=== PATIENT | female | born 1990 | race Caucasian/White ===

== ENCOUNTER → 2021-12-10 14:56 | Outpatient (CLI) | payer OTHER, SELFPAY ==
--- NOTE | ~2021-12-10 | US_ITS ---
EXAMINATION: US OB <= 14 weeks fetus DATE: 12/10/2021 15:19 INDICATION: Status post dating and viability of during first trimester TECHNIQUE: Real-time pelvic ultrasound utilizing both a transvaginal and transabdominal probe was pe rformed. The interpreting radiologist was not present for the study. COMPARISON: None. FINDINGS: The uterus measures 10.1 x 7.4 x 8.9 cm. There is an intrauterine gestational sac. A yolk sac and fe christina pole are identified. The crown rump length measures 5.6 cm, which correlates with an estimated ge stational age of 12 weeks and 1 days. heart motion is identified measuring 152 beats per minute (bpm) by M-mode Doppler. 1.7 x 0.9 x 1.4 cm anechoic subchorionic hematoma along the left side of th e gestational sac. The bilateral ovaries are not visualized. There is no free fluid in the pelvis. IMPRESSION: 1. Single living fetus with heart rate of 152 bpm. 2. Gestational age by ultrasound of 12 weeks 1 day(s) +/- 1 week and 1 day(s) with ultrasound estimat ed date of delivery (JUAN) of 06/23/2022. 3. Small subchorionic hematoma. Reviewed, dictated and finalized at location A. IMPRESSION: 1. Single living fetus with heart rate of 152 bpm. 2. Gestational age by ultrasound of 12 weeks 1 day(s) +/- 1 week and 1 day(s) w ith ultrasound estimated date of delivery (JUAN) of 06/23/2022. 3. Small subchorionic hematoma.
== END ==
PROVIDERS: PCP Internal Medicine; Visit Provider Advanced Practice Midwife
DX: Z36.87 Encounter for antenatal screening for uncertain dates (principal); Z3A.12 12 weeks gestation of pregnancy
CPT/HCPCS: 76801

== ENCOUNTER → 2022-01-09 08:52 | Outpatient (CLI) | payer OTHER, SELFPAY ==
--- NOTE | ~2022-01-09 | US_ITS ---
EXAMINATION: US OB follow up DATE: 01/09/2022 09:19 INDICATION: Subchorionic hematoma follow-up, second trimester TECHNIQUE: Real-time ultrasound of the pelvis was performed. The interpreting radiologist was not pre sent for the study. COMPARISON: 12/10/2021 FINDINGS: There is a single living fetus in variable presentation. The placenta is anterior and 4.9 c m from the internal cervical os. There is a 2.6 x 2.1 x 1.0 cm hypoechoic area adjacent to the placen ta. The cervical length is 4.9 cm. cardiac activity and movement are noted. heart r ate is 151 beats per minute (bpm). The amniotic fluid index is subjectively normal. The following biometric data were obtained: Biparietal diameter (BPD): 3.2 cm; head circumference (HC): 12.7 cm; abdominal circumference (AC): 10 .7 cm; femur length (FL): 2.1 cm. These measurements are concordant. Estimated weight is 154 g +/- 23 g, which correlates with the 40th percentile when 06/23/2022 is used as estimated date of delivery. As single measurements, these parameters are each equal to the following estimated gestational ages w ith ranges of +/- 2 standard deviations: BPD: 16 weeks 1 days +/- 1 weeks 1 days. HC: 16 weeks 3 days +/- 1 weeks 1 days. AC: 16 weeks 4 days +/- 1 weeks 5 days. FL: 16 weeks 1 days +/- 1 weeks 3 days. estimated gestational age based solely on measurements from this exam is 16 weeks 2 days +/- 1 weeks 1 days. IMPRESSION: 1. Single living fetus in variable presentation. 2. Estimated weight is 154 g +/- 23 g, which correlates with the 40th percentile when 06/23/2022 is used as estimated date of delivery. 3. Persistent hypoechoic area adjacent to the placenta, likely small hemorrhage. Reviewed, dictated and finalized at location A. IMPRESSION: 1. Single living fetus in variable presentation. 2. Estimated weight is 154 g +/- 23 g, which correlates with the 40th per centile when 06/23/2022 is used as estimated date of delivery. 3. Persistent hypoechoic area adjacent to the placenta, likely small hemorrhage .
== END ==
PROVIDERS: PCP Obstetrics & Gynecology Gynecology; Visit Provider Obstetrics & Gynecology Gynecology
DX: O46.92 Antepartum hemorrhage, unspecified, second trimester (principal); Z3A.16 16 weeks gestation of pregnancy
CPT/HCPCS: 76816

== ENCOUNTER → 2022-01-28 10:59 | Outpatient (CLI) | payer OTHER, SELFPAY ==
--- NOTE | ~2022-01-28 | US_ITS ---
EXAMINATION: US OB /maternal detail DATE: 01/28/2022 11:39 INDICATION: anatomic survey. TECHNIQUE: Real-time ultrasound of the pelvis was performed. COMPARISON: Ultrasound 01/09/2022, 12/10/2021 FINDINGS: There is a single living fetus in transverse lie. The placenta is anterior, 7.4 cm from the cervix. There is a 1.4 x 1.2 x 0.9 cm hypoechoic hematoma at the margin of the placenta. The cervical length is normal on transabdominal images. heart rate is 149 beats per minute (bpm). The amniotic flui d volume is subjectively normal. The following biometric data were obtained: Biparietal diameter (BPD): 4.4 cm; head circumference (HC): 16.0 cm; abdominal circumference (AC): 13 .8 cm; femur length (FL): 2.9 cm. These measurements are concordant. Estimated weight is 271 g +/- 41 g, which correlates with the 40th percentile when 06/23/22 is us ed as estimated date of delivery. As single measurements, these parameters are each equal to the following estimated gestational ages: BPD: 19 weeks 2 days. HC: 18 weeks 6 days. AC: 19 weeks 2 days. FL: 18 weeks 6 days. estimated gestational age based solely on measurements from this exam is 19 weeks 1 days +/- 1 weeks 2 days. The cerebral ventricles, cerebellum, cisterna magna, nuchal fold, lip, and visualized portions of the spine are normal. The heart is normal. The diaphragm, stomach, kidneys, and bladder are normal. Ther e are two umbilical arteries to yield a 3-vessel cord. The cord insertion is normal. IMPRESSION: 1. Single living fetus in transverse lie. 2. Estimated weight is 271 g +/- 41 g, which correlates with the 40th percentile when 06/23/22 i s used as estimated date of delivery. 3. Normal anatomic survey. 4. Small hematoma at the margin of the placenta. Reviewed, dictated and finalized at location A. IMPRESSION: 1. Single living fetus in transverse lie. 2. Estimated weight is 271 g +/- 41 g, which correlates with the 40th pe rcentile when 06/23/22 is used as estimated date of delivery. 3. Normal anatomic survey. 4. Small hematoma at the margin of the placenta.
== END ==
PROVIDERS: PCP Advanced Practice Midwife; Visit Provider Advanced Practice Midwife
DX: Z36.9 Encounter for antenatal screening, unspecified (principal); Z3A.19 19 weeks gestation of pregnancy
CPT/HCPCS: 76805

== ENCOUNTER → 2022-02-25 08:53 | Outpatient (CLI) | payer OTHER, SELFPAY ==
--- NOTE | ~2022-02-25 | US_ITS ---
EXAMINATION: US OB follow up DATE: 02/25/2022 09:18 INDICATION: Subchorionic hematoma follow-up during second trimester TECHNIQUE: Real-time ultrasound of the pelvis was performed. The interpreting radiologist was not pre sent for the study. COMPARISON: 01/28/2022 FINDINGS: There is a single living fetus in vertex presentation. The placenta is anterior. card iac activity and movement are noted. heart rate is 131 beats per minute (bpm). The amniot ic fluid index is subjectively normal. A 1.7 x 1.3 x 1.5 cm hypoechoic area is seen in the margin of the placenta and not significantly changed. The following biometric data were obtained: Biparietal diameter (BPD): 5.7 cm; head circumference (HC): 20.5 cm; abdominal circumference (AC): 19 .2 cm; femur length (FL): 4.1 cm. These measurements are concordant. Estimated weight is 602 g +/- 90 g, which correlates with the 61st percentile when 06/23/2022 is used as estimated date of delivery. As single measurements, these parameters are each equal to the following estimated gestational ages w ith ranges of +/- 2 standard deviations: BPD: 23 weeks 2 days +/- 1 weeks 5 days. HC: 22 weeks 4 days +/- 1 weeks 3 days. AC: 24 weeks 0 days +/- 2 weeks 0 days. FL: 23 weeks 2 days +/- 1 weeks 6 days. estimated gestational age based solely on measurements from this exam is 23 weeks 2 days +/- 1 weeks 4 days. IMPRESSION: 1. Single living fetus in vertex presentation. 2. Small hematoma at the margin of the placenta without significant change. Reviewed, dictated and finalized at location B. ER FIXER
== END ==
PROVIDERS: PCP Obstetrics & Gynecology Gynecology; Visit Provider Obstetrics & Gynecology Gynecology
DX: O36.8920 Maternal care for other specified fetal problems, second trimester, not applicable or unspecified (principal); Z3A.23 23 weeks gestation of pregnancy
CPT/HCPCS: 76816

== ENCOUNTER → 2022-03-24 11:35 | Outpatient (CLI) | payer OTHER, SELFPAY ==
--- NOTE | ~2022-03-24 | US_ITS ---
EXAMINATION: US OB follow up DATE: 03/24/2022 12:02 INDICATION: Follow-up subchorionic hematoma. TECHNIQUE: Real-time transabdominal obstetric ultrasound. FINDINGS: Comparison to multiple prior studies sequentially, with oldest reviewed study dated 022. There is a single living fetus in breech presentation. The placenta is anterior without placenta pre via. cardiac activity and movement is noted with a heart rate of 134 beats per minute. T he amniotic fluid volume is normal. Amniotic fluid index is increased measuring 22.9 cm (normal range 9.5-22.6 cm). No evidence for subchorionic hematoma. The following biometric data were obtained: BPD: 68mm corresponds to gestational age 27 weeks 3 days. Head circumference: 253mm corresponds to gestational age 27 weeks 3 days. Abdominal circumference: 226mm corresponds to gestational age 27 weeks 0 days. Femur length: 50mm corresponds to gestational age 26 weeks 6 days. Estimated weight: 1015grams +/- 152grams, 38.3%.] IMPRESSION: 1. Single living intrauterine in breech presentation with an estimated gestational age of 26 weeks 9 days by inititial ultrasound. Appropriate interval growth. 2. Normal placenta. 3: Polyhydramnios. NICK measures 22.9 cm. Reviewed, dictated and finalized at location A. RY CAR DRIVER IMPRESSION: 1. Single living intrauterine in breech presentation with an estimat ed gestational age of 26 weeks 9 days by inititial ultrasound. Appropriate int erval growth. 2. Normal placenta. 3: Polyhydramnios. NICK measures 22.9 cm.
== END ==
PROVIDERS: PCP Obstetrics & Gynecology Gynecology; Visit Provider Obstetrics & Gynecology Gynecology
DX: O24.414 Gestational diabetes mellitus in pregnancy, insulin controlled (principal); Z79.4 Long term (current) use of insulin; O36.8930 Maternal care for other specified fetal problems, third trimester, not applicable or unspecified; O40.3XX0 Polyhydramnios, third trimester, not applicable or unspecified; Z3A.00 Weeks of gestation of pregnancy not specified
CPT/HCPCS: 76816

== ENCOUNTER 2022-04-01 13:34 | Outpatient (CLI) | payer OTHER, SELFPAY ==
[2022-04-01 14:22] VITALS: BP 141/67; PULSE 85
[2022-04-01 14:45] LABS: Basophils Percent Auto 0.2 % (0.2-1.2); Eosinophils Absolute Auto 0.1 K/mm3 (0-0.3); Eosinophils Percent Auto 0.9 % (0-4.4); Hematocrit 33.1 % (37.0-47.0); Hemoglobin 10.9 g/dL (12.0-15.0); Immature Granulocyte Absolute 0.05 K/mm3 (0.00-0.031); Immature Granulocyte Percent A 0.5 % (0-0.5); Lymphocytes Absolute Auto 2.87 K/mm3 (0.9-3.2); Lymphocytes Percent Auto 28.6 % (18.3-44.2); Mean Corpuscular HGB Conc 32.9 g/dl (32-36); Mean Corpuscular Hemoglobin 30.9 pg (26-34); Mean Corpuscular Volume 93.8 fl (80-100); Mean Platelet Volume 8.1 fl (7.4-10.4); Monocytes Absolute Auto 0.7 K/mm3 (0.1-0.6); Monocytes Percent Auto 7.3 % (2.6-8.5); Neutrophils Absolute Auto 6.3 K/mm3 (1.3-6.7); Neutrophils Percent Auto 62.5 % (45.5-73.1); Platelet Count Result 249 k/mm3 (150-375); Red Blood Count 3.53 M/mm3 (4.2-5.4); Red Cell Distribution Width 13.6 % (11.5-14.5)
[2022-04-01 14:46] VITALS: BP 144/57; PULSE 85
[2022-04-01 14:50] LABS: Bilirubin Urine Negative (Negative); Blood Urine Negative (Negative); Color Urine Light Yellow (Yellow); Glucose Urine UA Negative (Negative); Ketones Urine Negative (Negative); Leukocyte Esterase Ur Negative LEU/UL (NEGATIVE); Nitrate Urine Negative (Negative); Protein Urine Negative (Negative); Urobilinogen Urine 0.2 mg/dL (<2.0)
[2022-04-01 14:52] LABS: Appearance Urine Slightly Cloudy (Clear)
[2022-04-01 14:53] LABS: Add Urine Microscopic? YES
[2022-04-01 14:55] LABS: Creatinine Urine 59.7 mg/dL; Total Protein Urine Random 8 mg/dL; Ur Ttl Prot Creatinine Ratio 0.13 mg/mg (0-0.20)
[2022-04-01 14:57] LABS: Alanine Aminotransferase 14 U/L (6-35); Albumin Level 3.7 g/dL (3.5-5.1); Alkaline Phosphatase 81 U/L (38-126); Anion Gap 5 mmol/L (8-16); Aspartate Amino Transferase 15 U/L (14-36); Bilirubin,Total 0.5 mg/dL (0.2-1.3); Blood Urea Nitrogen 6 mg/dL (7-17); Calcium 8.5 mg/dL (8.4-10.2); Carbon Dioxide 24 mmol/L (22-30); Chloride 102 mmol/L (98-107); Estimated Glomerular Filt Rate > 60; Glucose 77 mg/dL (65-110); Potassium 3.6 mmol/L (3.4-5.0); Sodium 131 mmol/L (137-145); Uric Acid 3.1 mg/dL (2.5-7.5)
[2022-04-01 14:58] LABS: Bacteria Urine Trace /hpf; Mucus Urine Rare /lpf; RBC Urine 0-2 /hpf (0-2); Squamous Epithelial Cell Urine Moderate /hpf (Few); WBC Urine 0-3 /hpf (0-3)
[2022-04-01 15:02] VITALS: BP 146/54; PULSE 87
[2022-04-01 15:16] VITALS: BP 143/58; PULSE 79
--- NOTE | 2022-04-01 15:18 | PC.NURSE ---
Called Dr. Fritz with BPs and lab results. August D/C home with 24hr urine.
[2022-04-01 15:37] LABS: HIV 1/2 Ab P24 Ag Result Negative (Negative)
[2022-04-01 16:51] LABS: Vitamin D 25 Hydroxy 32.2 ng/mL
[2022-04-04 12:15] VITALS: BMI 25.8
[2022-04-04 13:56] LABS: Collection Time Urine 24 HOURS; Patient Weight 170 Lbs; Total Volume 24 Hour Urine 2300 ml
[2022-04-04 14:08] LABS: Creatinine Clearance Urine 251.7 ml/min (75-125); Creatinine Urine 86.6 mg/dL; Total Protein Urine 24 Hr 161 mg/24hr (28-141); Total Protein Urine Random 7 mg/dL
== END 2022-04-01 15:30 | disposition home or self-care (01) ==
LOC: ANHOBOP 13:43 → ANHOBPP 13:44
PROVIDERS: Visit Provider Obstetrics & Gynecology Gynecology
DX: O13.9 Gestational [pregnancy-induced] hypertension without significant proteinuria, unspecified trimester (principal)
CPT/HCPCS: 36415; 59025; 80053; 81001; 81050; 82306; 82570; 82575; 84156; 84550; 85025; 86703; 87086; 99199; G0432

== ENCOUNTER 2022-04-07 16:52 | Outpatient (CLI) | payer OTHER, SELFPAY ==
[2022-04-07] VITALS (10 sets, daily range): BP systolic 123–134; BP diastolic 59–72; PULSE 80–92; O2SAT 97–100
[2022-04-07 17:41] LABS: Basophils Percent Auto 0.2 % (0.2-1.2); Eosinophils Absolute Auto 0.1 K/mm3 (0-0.3); Eosinophils Percent Auto 1.2 % (0-4.4); Hematocrit 33.4 % (37.0-47.0); Hemoglobin 11.1 g/dL (12.0-15.0); Immature Granulocyte Absolute 0.03 K/mm3 (0.00-0.031); Immature Granulocyte Percent A 0.3 % (0-0.5); Lymphocytes Absolute Auto 2.59 K/mm3 (0.9-3.2); Lymphocytes Percent Auto 28.5 % (18.3-44.2); Mean Corpuscular HGB Conc 33.2 g/dl (32-36); Mean Corpuscular Hemoglobin 31.1 pg (26-34); Mean Corpuscular Volume 93.6 fl (80-100); Mean Platelet Volume 7.8 fl (7.4-10.4); Monocytes Absolute Auto 0.5 K/mm3 (0.1-0.6); Monocytes Percent Auto 5.2 % (2.6-8.5); Neutrophils Absolute Auto 5.9 K/mm3 (1.3-6.7); Neutrophils Percent Auto 64.6 % (45.5-73.1); Platelet Count Result 233 k/mm3 (150-375); Red Blood Count 3.57 M/mm3 (4.2-5.4); Red Cell Distribution Width 13.6 % (11.5-14.5); White Blood Count 9.1 K/mm3 (4.5-10.0)
[2022-04-07 17:54] LABS: Alanine Aminotransferase 20 U/L (6-35); Albumin Level 3.7 g/dL (3.5-5.1); Alkaline Phosphatase 98 U/L (38-126); Anion Gap 5 mmol/L (8-16); Aspartate Amino Transferase 19 U/L (14-36); Bilirubin,Total 0.4 mg/dL (0.2-1.3); Blood Urea Nitrogen 9 mg/dL (7-17); Calcium 8.3 mg/dL (8.4-10.2); Carbon Dioxide 24 mmol/L (22-30); Chloride 102 mmol/L (98-107); Estimated Glomerular Filt Rate > 60; Glucose 108 mg/dL (65-110); Potassium 3.3 mmol/L (3.4-5.0); Sodium 131 mmol/L (137-145); Uric Acid 3.2 mg/dL (2.5-7.5)
[2022-04-07 18:04] LABS: Creatinine Urine 126.4 mg/dL
[2022-04-07 18:20] LABS: Total Protein Urine Random < 5 mg/dL; Ur Ttl Prot Creatinine Ratio < 0.04 mg/mg (0-0.20)
[2022-04-07 18:26] LABS: Add Urine Microscopic? YES; Appearance Urine Clear (Clear); Bilirubin Urine Negative (Negative); Blood Urine Negative (Negative); Color Urine Light Yellow (Yellow); Glucose Urine UA Negative (Negative); Ketones Urine 1+ mg/dL (Negative); Leukocyte Esterase Ur Negative LEU/UL (NEGATIVE); Nitrate Urine Negative (Negative); Protein Urine Negative (Negative); Urobilinogen Urine 0.2 mg/dL (<2.0); pH Urine 6.5 (5.0-9.0)
[2022-04-07 18:37] LABS: Bacteria Urine Trace /hpf; Mucus Urine Rare /lpf; RBC Urine 0-2 /hpf (0-2); Squamous Epithelial Cell Urine Few /hpf (Few); WBC Urine 0-3 /hpf (0-3)
--- NOTE | 2022-04-07 18:48 | PC.NURSE ---
Updated Rivka Britt CNM on pt elevated blood pressure upon arrival, blood pressure on unit, labs, and reactive tracing. Orders received to hydrate PO and D/C with instructions on when to return to labor and delivery.
--- NOTE | 2022-04-09 07:38 | PM.OBTRLD ---
OB - Triage/Final Diagnosis Visit Information Reason for evaluation: other (Elevated BP at home. ) Comments/Additional reasons for admission: I have assessed the risk for this patient, Dotty Ro Maggie, and determined that she would benefit from observation care. Evaluation Laboratory results: Laboratory Tests 04/07/22 04/07/22 04/07/22 17:32 17:32 17:32 WBC 9.1 RBC 3.57 L Hgb 11.1 L Hct 33.4 L MCV 93.6 MCH 31.1 MCHC 33.2 RDW 13.6 Plt Count 233 MPV 7.8 Immature Gran % (Auto) 0.3 Neut % (Auto) 64.6 Lymph % (Auto) 28.5 [place] % (Auto) 5.2 Eos % (Auto) 1.2 Baso % (Auto) 0.2 Lymph # (Auto) 2.59 [place] # (Auto) 0.5 Eos # (Auto) 0.1 Baso # (Auto) 0.0 Abs Immat Gran (auto) 0.03 Absolute Neuts (auto) 5.9 Absolute Nucleated RBC 0.0 Nucleated RBC % 0.0 Sodium Potassium Chloride Carbon Dioxide Anion Gap BUN Creatinine Estim Creat Clear Calc Estimated GFR Glucose Uric Acid Calcium Total Bilirubin AST ALT Alkaline Phosphatase Total Protein Albumin Urine Color Light yellow Urine Appearance Clear Urine pH 6.5 Ur Specific [place] 1.020 Urine Protein Negative Urine Glucose (UA) Negative Urine Ketones 1+ H Ur Blood (Man) Negative Urine Nitrate Negative Urine Bilirubin Negative Urine Urobilinogen 0.2 Ur Leukocyte Esterase Negative Urine RBC 0-2 Urine WBC 0-3 Ur Squamous Epith Cells Few Urine Bacteria Trace Urine Mucus Rare U Random Total Protein < 5 Urine Creatinine 126.4 Protein/Creat Ratio 2 < 0.04 04/07/22 17:32 WBC RBC Hgb Hct MCV MCH MCHC RDW Plt Count MPV Immature Gran % (Auto) Neut % (Auto) Lymph % (Auto) [place] % (Auto) Eos % (Auto) Baso % (Auto) Lymph # (Auto) [place] # (Auto) Eos # (Auto) Baso # (Auto) Abs Immat Gran (auto) Absolute Neuts (auto) Absolute Nucleated RBC Nucleated RBC % Sodium 131 L Potassium 3.3 L Chloride 102 Carbon Dioxide 24 Anion Gap 5 L BUN 9 Creatinine 0.60 L Estim Creat Clear Calc Not Reportable Estimated GFR > 60 Glucose 108 Uric Acid 3.2 Calcium 8.3 L Total Bilirubin 0.4 AST 19 ALT 20 Alkaline Phosphatase 98 Total Protein 7.0 Albumin 3.7 Urine Color Urine Appearance Urine pH Ur Specific [place] Urine Protein Urine Glucose (UA) Urine Ketones Ur Blood (Man) Urine Nitrate Urine Bilirubin Urine Urobilinogen Ur Leukocyte Esterase Urine RBC Urine WBC Ur Squamous Epith Cells Urine Bacteria Urine Mucus U Random Total Protein Urine Creatinine Protein/Creat Ratio 2
== END 2022-04-07 18:59 | disposition home or self-care (01) ==
LOC: ANHOBOP 17:00 → ANHOBPP 17:01
PROVIDERS: Visit Provider Obstetrics & Gynecology Gynecology
DX: O13.9 Gestational [pregnancy-induced] hypertension without significant proteinuria, unspecified trimester (principal); Z3A.00 Weeks of gestation of pregnancy not specified
CPT/HCPCS: 36415; 59025; 80053; 81001; 82570; 84156; 84550; 85025; 87086; 99199

== ENCOUNTER 2022-04-26 13:59 | Observation (INO) | payer OTHER, SELFPAY ==
[2022-04-26] VITALS (15 sets, daily range): BP systolic 128–138; BP diastolic 64–67; PULSE 85–105; O2SAT 97–100
--- NOTE | 2022-04-26 14:17 | OBADM ---
This patient, Dotty Serrano, admitted to the OB room OB Post 116 for observation. Patient/family oriented to hospital policies and general routines including ID bracelet, bed and alarms, visiting hours, pain management, procedures, bathroom and other care routines, personal items, smoking policy, room service/diet, and visiting hours. Patient/Family are encouraged to report perceived risks to care and to ask questions if they do not understand what they are told or what they should do.
[2022-04-26 14:33] LABS: Add Urine Microscopic? NO; Appearance Urine Clear (Clear); Bilirubin Urine Negative (Negative); Blood Urine Negative (Negative); Color Urine Yellow (Yellow); Glucose Urine UA Negative (Negative); Ketones Urine Negative (Negative); Leukocyte Esterase Ur Negative LEU/UL (Negative); Nitrate Urine Negative (Negative); Protein Urine Negative (Negative); Specific Grav Ur <= 1.005 (1.001-1.035); Urobilinogen Urine 0.2 mg/dL (<2.0)
--- NOTE | 2022-04-26 14:44 | PC.NURSE ---
1437- Spoke with Dr. Candelaria, orders to do SVE. If closed, watch patient for one more hour and PO hydrate. If patient feeling decrease in contractions may be discharged to home with precautions.
--- NOTE | 2022-04-26 15:29 | PC.NURSE ---
1528- Called Dr. Candelaria, patient marking contractions every minute, 30-40 seconds long. Abdomen palpates soft, orders to give 1 dose of terbutaline 0.25 subQ.
[2022-04-26] MEDS: TERBUTALINE SULFATE 1 MG/ML VIAL 0.25 MG SUB-Q (15:35)
--- NOTE | 2022-04-26 16:51 | PC.NURSE ---
1640- Spoke with Dr. Candelaria, orders for discharge to home with precautions.
--- NOTE | 2022-04-28 13:48 | PM.OBTRLD ---
OB - Triage/Final Diagnosis Visit Information Date of evaluation: 04/26/22 Reason for evaluation: threatened labor Comments/Additional reasons for admission: I have assessed the risk for this patient, Dotty Ro Maggie, and determined that she would benefit from observation care. Evaluation Laboratory results: Laboratory Tests 04/26/22 14:12 Urine Color Yellow Urine Appearance Clear Urine pH 7.0 Ur Specific [place] <= 1.005 Urine Protein Negative Urine Glucose (UA) Negative Urine Ketones Negative Ur Blood (Man) Negative Urine Nitrate Negative Urine Bilirubin Negative Urine Urobilinogen 0.2 Leukocyte Esterase Rfl Negative
== END 2022-04-26 16:50 | disposition home or self-care (01) ==
PROVIDERS: Admitting Provider Student in an Organized Health Care Education/Training Program; Visit Provider Student in an Organized Health Care Education/Training Program
DX: O47.03 False labor before 37 completed weeks of gestation, third trimester (principal); Z3A.31 31 weeks gestation of pregnancy
CPT/HCPCS: 81003; 96372; G0378; G0379; J3105

== ENCOUNTER 2022-04-30 09:35 | Outpatient (CLI) | payer OTHER, SELFPAY ==
--- NOTE | ~2022-04-30 | US_ITS ---
EXAMINATION: US OB follow up DATE: 04/30/2022 15:54 INDICATION: Size greater than dates. TECHNIQUE: Real-time ultrasound of the pelvis was performed. COMPARISON: Ultrasound 03/24/2022, 12/10/2021 FINDINGS: There is a single living fetus in transverse lie with head on the mother's right. The placenta is an terior. heart rate is 151 beats per minute (bpm). The cervical length is 3.8 cm on transabdomin al images, which is normal. The amniotic fluid index is 16.4 cm, which is normal. The following biometric data were obtained: Biparietal diameter (BPD): 8.5 cm; head circumference (HC): 30.3 cm; abdominal circumference (AC): 29 .5 cm; femur length (FL): 6.1 cm. These measurements are concordant. Estimated weight is 2111 g +/- 317 g, which correlates with the 65th percentile when 06/23/22 is used as estimated date of delivery. As single measurements, these parameters are each equal to the following estimated gestational ages: BPD: 34 weeks 2 days. HC: 33 weeks 5 days. AC: 33 weeks 3 days. FL: 31 weeks 5 days. estimated gestational age based solely on measurements from this exam is 33 weeks 2 days +/- 2 weeks 2 days. IMPRESSION: 1. Single living fetus in transverse lie. 2. Estimated weight is 2111 g +/- 317 g, which correlates with the 65th percentile when 06/23/22 is used as estimated date of delivery. Reviewed, dictated and finalized at location A. LINER
== END 2022-04-30 09:36 | disposition home or self-care (01) ==
LOC: ANHIMG 09:36
PROVIDERS: Visit Provider Obstetrics & Gynecology Gynecology
DX: O36.63X0 Maternal care for excessive fetal growth, third trimester, not applicable or unspecified (principal); Z3A.33 33 weeks gestation of pregnancy
CPT/HCPCS: 76816

== ENCOUNTER 2022-05-18 11:55 | Outpatient (CLI) | payer OTHER, SELFPAY ==
[2022-05-18] VITALS (14 sets, daily range): BP systolic 113–145; BP diastolic 56–85; PULSE 89–105
[2022-05-18 12:50] LABS: Basophils Percent Auto 0.2 % (0.2-1.2); Eosinophils Absolute Auto 0.1 K/mm3 (0-0.3); Eosinophils Percent Auto 0.7 % (0-4.4); Hematocrit 32.9 % (37.0-47.0); Hemoglobin 10.7 g/dL (12.0-15.0); Immature Granulocyte Absolute 0.04 K/mm3 (0.00-0.031); Immature Granulocyte Percent A 0.4 % (0-0.5); Lymphocytes Absolute Auto 2.31 K/mm3 (0.9-3.2); Mean Corpuscular HGB Conc 32.5 g/dl (32-36); Mean Corpuscular Hemoglobin 29.7 pg (26-34); Mean Corpuscular Volume 91.4 fl (80-100); Mean Platelet Volume 8.1 fl (7.4-10.4); Monocytes Absolute Auto 0.9 K/mm3 (0.1-0.6); Monocytes Percent Auto 8.2 % (2.6-8.5); Neutrophils Absolute Auto 7.2 K/mm3 (1.3-6.7); Neutrophils Percent Auto 68.5 % (45.5-73.1); Platelet Count Result 266 k/mm3 (150-375); Red Cell Distribution Width 13.7 % (11.5-14.5); White Blood Count 10.5 K/mm3 (4.5-10.0)
[2022-05-18 12:51] LABS: Appearance Urine Slightly Cloudy (Clear); Bilirubin Urine 1+ (Negative); Blood Urine Negative (Negative); Color Urine Yellow (Yellow); Glucose Urine UA Negative (Negative); Ketones Urine Trace mg/dL (Negative); Leukocyte Esterase Ur Trace LEU/UL (NEGATIVE); Nitrate Urine Negative (Negative); Protein Urine 1+ mg/dL (Negative); Urobilinogen Urine 0.2 mg/dL (<2.0)
[2022-05-18] MEDS: PSEUDOEPHEDRINE HCL 30 MG TABLET PO (12:52)
[2022-05-18 12:59] LABS: Bacteria Urine 3+ /hpf; Mucus Urine Rare /lpf; Squamous Epithelial Cell Urine Many /hpf (Few)
[2022-05-18 13:03] LABS: Creatinine Urine 157.4 mg/dL
--- NOTE | 2022-05-18 13:07 | PC.NURSE ---
Patient arrived on the unit at 1155 with complaints of a headache since 0900 and now has floaters in her vision. Patient has GDM and GHTN this . She is currently awaiting results of a 24 hour urine test. Patient is rating her headache a 5/10 and took 650mg of Tylenol at home at 1000. Obtained VS and an NST and called Dr. Hu with the results. Verbal orders received for PIH labs as well as 30 mg Sudafed PO.
[2022-05-18 13:10] LABS: Add Urine Microscopic? YES
[2022-05-18 13:12] LABS: Alanine Aminotransferase 19 U/L (6-35); Albumin Level 3.6 g/dL (3.5-5.1); Alkaline Phosphatase 99 U/L (38-126); Anion Gap 3 mmol/L (8-16); Aspartate Amino Transferase 17 U/L (14-36); Bilirubin,Total 0.8 mg/dL (0.2-1.3); Blood Urea Nitrogen 9 mg/dL (7-17); Calcium 8.8 mg/dL (8.4-10.2); Carbon Dioxide 25 mmol/L (22-30); Chloride 101 mmol/L (98-107); Estimated Glomerular Filt Rate > 60; Glucose 77 mg/dL (65-110); Potassium 3.8 mmol/L (3.4-5.0); Sodium 129 mmol/L (137-145); Uric Acid 3.6 mg/dL (2.5-7.5)
[2022-05-18 13:29] LABS: Total Protein Urine Random < 5 mg/dL; Ur Ttl Prot Creatinine Ratio < 0.03 mg/mg (0-0.20)
--- NOTE | 2022-05-18 13:41 | PC.NURSE ---
Spoke with Dr. Hu ([id number]) and updated her on patient status as well as lab values. Patient has complaints of nausea and blurred vision in her right eye. Orders placed for Fiorinal x1, Zofran ODT x1, reevaluate in one hour.
[2022-05-18] MEDS: ONDANSETRON HCL ODT 4 MG TABLET PO (13:58)
== END 2022-05-18 14:55 | disposition home or self-care (01) ==
LOC: ANHOBOP 11:59 → ANHOBPP 05-23 06:25
PROVIDERS: Obstetrics & Gynecology; PCP Advanced Practice Midwife; Visit Provider Advanced Practice Midwife
DX: O13.9 Gestational [pregnancy-induced] hypertension without significant proteinuria, unspecified trimester (principal); Z3A.00 Weeks of gestation of pregnancy not specified
CPT/HCPCS: 36415; 59025; 80053; 81001; 82570; 84156; 84550; 85025; 87086; 87088; 99199; A9270

== ENCOUNTER 2022-05-26 08:52 | Outpatient (CLI) | payer OTHER, SELFPAY ==
--- NOTE | ~2022-05-26 | US_ITS ---
EXAMINATION: US OB follow up DATE: 05/26/2022 09:54 INDICATION: Gestational diabetes during third trimester TECHNIQUE: Real-time ultrasound of the pelvis was performed. The interpreting radiologist was not pre sent for the study. COMPARISON: 04/30/2022 FINDINGS: There is a single living fetus in vertex presentation. The placenta is anterior. The cervic al length is 4.2 cm. cardiac activity and movement are noted. heart rate is 17.9 cm beats per minute (bpm). The amniotic fluid index is 17.9 cm which is normal (normal range: 7.7 cm to 24.9 cm). The following biometric data were obtained: Biparietal diameter (BPD): 9.3 cm; head circumference (HC): 33.1 cm; abdominal circumference (AC): 34 .6 cm; femur length (FL): 6.9 cm. These measurements are concordant. Estimated weight is 3288 g +/- 493 g, which correlates with the 91st percentile when 06/23/2022 i s used as estimated date of delivery. As single measurements, these parameters are each equal to the following estimated gestational ages w ith ranges of +/- 2 standard deviations: BPD: 37 weeks 6 days +/- 3 weeks 1 days. HC: 37 weeks 5 days +/- 2 weeks 5 days. AC: 38 weeks 4 days +/- 3 weeks 0 days. FL: 35 weeks 5 days +/- 3 weeks 0 days. estimated gestational age based solely on measurements from this exam is 37 weeks 3 days +/- 2 weeks 4 days. IMPRESSION: 1. Single living fetus in vertex presentation. 2. Normal amniotic fluid index. 3. Estimated weight is 3288 g +/- 493 g, which correlates with the 91st percentile when 3 is used as estimated date of delivery. Reviewed, dictated and finalized at location B. PACKER/PACKAGER IMPRESSION: 1. Single living fetus in vertex presentation. 2. Normal amniotic fluid index. 3. Estimated weight is 3288 g +/- 493 g, which correlates with the 91st p ercentile when 06/23/2022 is used as estimated date of delivery.
== END 2022-05-26 08:53 | disposition home or self-care (01) ==
PROVIDERS: PCP Advanced Practice Midwife; Visit Provider Obstetrics & Gynecology Gynecology
DX: O24.414 Gestational diabetes mellitus in pregnancy, insulin controlled (principal); Z79.4 Long term (current) use of insulin
CPT/HCPCS: 76816

== ENCOUNTER 2022-06-03 09:33 | Inpatient (IN) | payer OTHER, SELFPAY ==
[2022-06-03] VITALS (77 sets, daily range): BP systolic 84–149; BP diastolic 42–114; PULSE 81–124; TEMP 36.1–36.4; O2SAT 87–100; BMI 40.5
--- NOTE | 2022-06-03 09:33 | LDADM ---
This patient, Dotty Serrano, was admitted to Labor/Delivery/Recovery 104 on 06/03/22 at 09:33. Plans for labor, pain management and were discussed with patient. Patient/family oriented to hospital policies and general routines including ID bracelet, bed and alarms, visiting hours, pain management, procedures, bathroom and other care routines, personal items, smoking policy, room service/diet and guest tray routines, infant security routines, and visiting hours. Patient/Family are encouraged to report perceived risks to care and to ask questions if they do not understand what they are told or what they should do. See OBIX for further documentation.
[2022-06-03 10:21] LABS: Glucose Point of Care 91 mg/dl (65-105)
[2022-06-03 10:44] LABS: Basophils Percent Auto 0.2 % (0.2-1.2); Eosinophils Absolute Auto 0.1 K/mm3 (0-0.3); Eosinophils Percent Auto 0.6 % (0-4.4); Hematocrit 32.2 % (37.0-47.0); Hemoglobin 10.6 g/dL (12.0-15.0); Immature Granulocyte Absolute 0.04 K/mm3 (0.00-0.031); Immature Granulocyte Percent A 0.4 % (0-0.5); Lymphocytes Absolute Auto 1.89 K/mm3 (0.9-3.2); Lymphocytes Percent Auto 20.1 % (18.3-44.2); Mean Corpuscular HGB Conc 32.9 g/dl (32-36); Mean Corpuscular Hemoglobin 29.5 pg (26-34); Mean Corpuscular Volume 89.7 fl (80-100); Mean Platelet Volume 8.1 fl (7.4-10.4); Monocytes Absolute Auto 0.7 K/mm3 (0.1-0.6); Monocytes Percent Auto 7.7 % (2.6-8.5); Neutrophils Absolute Auto 6.7 K/mm3 (1.3-6.7); Platelet Count Result 273 k/mm3 (150-375); Red Blood Count 3.59 M/mm3 (4.2-5.4); White Blood Count 9.4 K/mm3 (4.5-10.0)
[2022-06-03] MEDS: miSOPROStol 25 MCG TABLET BY MOUTH ×2 (10:48→15:14)
[2022-06-03 10:57] LABS: Alanine Aminotransferase 18 U/L (6-35); Albumin Level 3.8 g/dL (3.5-5.1); Alkaline Phosphatase 114 U/L (38-126); Anion Gap 2 mmol/L (8-16); Aspartate Amino Transferase 23 U/L (14-36); Bilirubin,Total 0.7 mg/dL (0.2-1.3); Blood Urea Nitrogen 8 mg/dL (7-17); Calcium 8.5 mg/dL (8.4-10.2); Carbon Dioxide 23 mmol/L (22-30); Chloride 104 mmol/L (98-107); Estimated Glomerular Filt Rate > 60; Glucose 93 mg/dL (65-110); Potassium 4.2 mmol/L (3.4-5.0); Sodium 129 mmol/L (137-145)
[2022-06-03 11:13] LABS: Creatinine Urine 36.8 mg/dL; Total Protein Urine Random 11 mg/dL
[2022-06-03 16:24] LABS: Glucose Point of Care 102 mg/dl (65-105)
[2022-06-03] MEDS: OXYTOCIN 30 UNITS/NS 500 ML 30 UNITS/500 ML BAG IV CONT (19:30)
[2022-06-03] MEDS: LACTATED RINGERS 1,000 ML 999 ML IV CONT (19:30)
--- NOTE | 2022-06-03 19:55 | WPDANESEPP ---
Anes - Eval Pre Procedure Procedure: Labor Epidural Date/Time: 06/03/22 19:55 Surgeon: Lam Preop Diagnosis: Pain c contractions Pre Op Diagnosis: Induction of Labor Patient Data Age: 32 Gender: F Height: 1.75 m Weight: 124.5 kg Last Vital Signs Temp 36.2 C L 06/03/22 15:00 Pulse 101 H 06/03/22 19:01 BP 132/66 06/03/22 19:01 O2 Del Method Room Air 06/03/22 11:16 Allergies Allergy/AdvReac Type Severity Reaction Status Date / Time Penicillins Allergy Rash Verified 05/27/22 13:55 Home Medications Medication Instructions Recorded Confirmed Type ergocalciferol (vitamin D2) 1,250 1,250 mcg PO WEEKLY 04/26/22 06/03/22 History mcg (50,000 unit) capsule insulin NPH isoph U-100 human 100 42 unit subcut DIRECTED 04/26/22 06/03/22 History unit/mL subcutaneous suspension (Humulin N NPH U-100 Insulin (isophane susp)) insulin lispro 100 unit/mL 5 unit subcut DIRECTED 04/26/22 06/03/22 History subcutaneous solution (Humalog U-100 Insulin) sertraline 50 mg tablet 50 mg PO DAILY 04/26/22 06/03/22 History Laboratory Tests 06/03/22 06/03/22 06/03/22 10:15 10:33 10:33 WBC 9.4 K/mm3 K/mm3 (4.5-10.0) RBC 3.59 M/mm3 L M/mm3 (4.2-5.4) Hgb 10.6 g/dL L g/dL (12.0-15.0) Hct 32.2 % L % (37.0-47.0) MCV 89.7 fl fl (80-100) MCH 29.5 pg pg (26-34) MCHC 32.9 g/dl g/dl (32-36) RDW 14.0 % % (11.5-14.5) Plt Count 273 k/mm3 k/mm3 (150-375) MPV 8.1 fl fl (7.4-10.4) Immature Gran % (Auto) 0.4 % % (0-0.5) Neut % (Auto) 71.0 % % (45.5-73.1) Lymph % (Auto) 20.1 % % (18.3-44.2) [place] % (Auto) 7.7 % % (2.6-8.5) Eos % (Auto) 0.6 % % (0-4.4) Baso % (Auto) 0.2 % % (0.2-1.2) Lymph # (Auto) 1.89 K/mm3 K/mm3 (0.9-3.2) [place] # (Auto) 0.7 K/mm3 H K/mm3 (0.1-0.6) Eos # (Auto) 0.1 K/mm3 K/mm3 (0-0.3) Baso # (Auto) 0.0 K/mm3 K/mm3 (0.0-0.1) Abs Immat Gran (auto) 0.04 K/mm3 H K/mm3 (0.00-0.031) Absolute Neuts (auto) 6.7 K/mm3 K/mm3 (1.3-6.7) Absolute Nucleated RBC 0.0 K/mm3 K/mm3 (0.0-0.012) Nucleated RBC % 0.0 % % (0.0-0.2) Sodium Potassium Chloride Carbon Dioxide Anion Gap BUN Creatinine Estim Creat Clear Calc Estimated GFR Glucose POC Capillary Glucose 91 mg/dl mg/dl (65-105) Uric Acid 3.0 mg/dL mg/dL (2.5-7.5) Calcium Total Bilirubin AST ALT Alkaline Phosphatase Total Protein Albumin U Random Total Protein Urine Creatinine Protein/Creat Ratio 2 RPR Blood Type Antibody Screen 06/03/22 06/03/22 06/03/22 10:33 10:33 10:33 WBC RBC Hgb Hct MCV MCH MCHC RDW Plt Count MPV Immature Gran % (Auto) Neut % (Auto) Lymph % (Auto) [place] % (Auto) Eos % (Auto) Baso % (Auto) Lymph # (Auto) [place] # (Auto) Eos # (Auto) Baso # (Auto) Abs Immat Gran (auto) Absolute Neuts (auto) Absolute Nucleated RBC Nucleated RBC % Sodium 129 mmol/L L mmol/L (137-145) Potassium 4.2 mmol/L mmol/L (3.4-5.0) Chloride 104 mmol/L mmol/L (98-107) Carbon Dioxide 23 mmol/L mmol/L (22-30) Anion Gap 2 mmol/L L mmol/L (8-16) BUN 8 mg/dL mg/dL (7-17) Creatinine 0.40 mg/dL L mg/dL (0.7-1.
[2022-06-03] MEDS: LACTATED RINGERS 1,000 ML 125 ML IV CONT (20:38)
[2022-06-03 21:27] LABS: Glucose Point of Care 105 mg/dl (65-105)
[2022-06-03] MEDS: INSULIN HUMAN NPH (*BKC) 100 UNITS/ML 42 UNITS SUB-Q (21:39)
[2022-06-04] VITALS (259 sets, daily range): BP systolic 93–164; BP diastolic 43–143; PULSE 54–116; RESP 16; TEMP 36.2–36.4; O2SAT 87–100
[2022-06-04] MEDS: diphenhydrAMINE HCl INJ 50 MG/ML VIAL 25 MG IV PUSH (00:37)
[2022-06-04] MEDS: LACTATED RINGERS 1,000 ML 125 ML IV CONT ×3 (01:23→16:47)
[2022-06-04 02:34] LABS: Glucose Point of Care 67 mg/dl (65-105)
[2022-06-04 06:35] LABS: Glucose Point of Care 89 mg/dl (65-105)
--- NOTE | 2022-06-04 07:51 | WPDOBADMIT ---
Obstetrics - Admit Note Admission Note: record reviewed. No pertinent additions to the history and/or any subsequent changes in the physical findings that are not consistent with the expected course of the were found. Additions to the history and/or subsequent changes in the physical findings follow. Admitted 06/03/22 for gTHN with severe range BPs in the office.
--- NOTE | 2022-06-04 07:52 | PM.OBPNLAB ---
Pain Control Date/time seen: 06/04/22 07:45 Pain control: tolerating well and epidural Pelvic Exam Dilation (cm): 2 Effacement (%): 50 station: -3 Amniotic membrane status: Intact Contractions Monitor mode: External Contraction frequency: 2 (2-4) Contraction duration: 60 Contraction pattern: Regular Contraction phase: Contraction Contraction intensity: Moderate Status status: Category l Assessment and Plan Pitocin rate (mU/min): 16 Comments: CNM to bedside. Discussed plan of care an option for amniotomy and IUPC placement. Discussed risks, benefits, and expectations of breaking water. Patient is agreeable. Amniotomy performed and there was a moderate return of clear amniotic fluid with small bloody show. IUPC inserted. Patient tolerated procedure well. Pitocin rate decreased to 8ml/hr.
[2022-06-04 10:35] LABS: Glucose Point of Care 65 mg/dl (65-105)
[2022-06-04 14:34] LABS: Glucose Point of Care 70 mg/dl (65-105)
[2022-06-04 16:22] LABS: Rapid Plasma Reagin Non-Reactive (NonReactive)
--- NOTE | 2022-06-04 17:19 | PM.OBPNLAB ---
Pain Control Date/time seen: 06/04/22 17:15 Pain control: tolerating well and epidural Contractions Monitor mode: Internal Contraction frequency: 2 (2-3) Contraction duration: 80 Contraction pattern: Regular Status status: Category l Assessment and Plan Pitocin rate (mU/min): 8 Plan: continuous present management Comments: Last SVE by RN was 5cm. Ctx adequate via IUPC. Plan to continue present management. Anticipate vaginal . Dr. Fritz updated on pt's status.
[2022-06-04 18:37] LABS: Glucose Point of Care 60 mg/dl (65-105)
[2022-06-04 22:23] LABS: Glucose Point of Care 58 mg/dl (65-105)
[2022-06-04] MEDS: OXYTOCIN 30 UNITS/NS 500 ML 30 UNITS/500 ML BAG 999 UNITS IV CONT (23:00)
--- NOTE | 2022-06-04 23:18 | PM.OBPRVD ---
OB - Delivery Note Procedure Delivery date: 06/04/22 Procedure: Events: Gestational Diabetes, Gestational Hypertension and Polyhydramnios Induction method: Per Misoprostol Protocol and Per Pitocin Protocol Delivery augmentation: Rupture of Membranes Delivery monitor: External FHT, External Uterine and Internal Uterine Route of delivery: Episiotomy description: None Laceration Description: Perineal - 2nd Degree Delivery repair: vicryl Specimen: Yes Quantitative Blood Loss (ml): 150 Anesthesia type: Epidural Disposition: Floor Narrative: Patient sent from the office to Labor and delivery for induction 2/2 severe range blood pressures. Induction started with sublingual Cytotec followed by oxytocin. Patient progressed to complete dilation and had the urge to push. She pushed with 2 contractions and delivered a female infant in the ROP position with compound presentation of the right hand. After 1 minute of life, the cord was doubly clamped and cut. Cord blood and cord gases were obtained, as well as a cord segment. A second-deglaceration was repaired in the usual fashion. All delivery counts correct. Patient and infant skin to skin in the delivery room. [place] Baby Date of : 06/04/22 Time of : 22:46 Weeks of gestation at delivery: 37 Infant gender: Female Weight (pounds): 6 Weight (ounces): 10 presentation: vertex (Compound presentation with right hand) position: Left Occiput Posterior Placenta delivery description: Spontaneous Cord Vessel Description: 3 Vessels score one minute: 9 score five minutes: 9
--- NOTE | 2022-06-04 23:28 | PM.OBDSVD ---
DS: Admitting Diagnosis Discharge Date 06/05/2022 Admitting Diagnosis 32y.o at 37 weeks gHTN GDMA2 Polyhydramnios Rubella Non-Immune Anxiety DS: Discharge Diagnosis Discharge Diagnosis (1) Gestational diabetes mellitus: Code(s): O24.419 - Gestational diabetes mellitus in , unspecified control Status: Acute (2) Anxiety: Code(s): F41.9 - Anxiety disorder, unspecified Status: Acute (3) GDM, class A2: Code(s): O24.419 - Gestational diabetes mellitus in , unspecified control Status: Acute (4) (normal spontaneous vaginal delivery): Code(s): O80 - Encounter for full-term uncomplicated delivery Status: Acute (5) Mother currently breast-feeding: Code(s): Z39.1 - Encounter for care and examination of lactating mother Status: Acute OB - DS: Summary Hospital Course Hospital Course: uncomplicated OB Procedures : NST and Ultrasound OB Procedures Intrapartum: Spontaneous Vag Delivery OB Procedures: : Rubella lg Peripartum Data Delivery Method: Natural Vaginal Laceration Description: Perineal - 2nd Degree Episiotomy description: None complications: none Status at Discharge Overall status at discharge: patient is progressing back to baseline Time Spent with Patient Time attestation: Total time spent providing and/or coordinating discharge services: Exam Narrative: Alert and oriented. Mood is pleasant and cooperative. Urinating without difficulty. Denies passing any large clots. Perineum with minimal edema. Fundus firm and below umbilicus. Const: General: cooperative, healthy appearing, no acute distress and alert Orientation/consciousness: patient oriented x3 Limitations: no limitations Resp: Effort & Inspection: normal respiratory effort Auscultation: clear to auscultation bilaterally Cardio: Rate: regular rate GI: Inspection: normal to inspection Neuro: General: patient oriented x3 Extrem: General: normal to inspection Psych: Appearance: grossly normal Mental Status: mental status grossly normal Affect: normal affect Thought process: Normal thought process present DS: Data Data Completed and Pending Labs on day of discharge: Labs from last 24 hours 06/04/22 06/04/22 06/04/22 22:21 18:35 14:31 POC Capillary Glucose 58 L* 60 L 70 RPR 06/04/22 06/04/22 06/04/22 10:32 06:31 02:30 POC Capillary Glucose 65 89 67 RPR 06/03/22 10:33 POC Capillary Glucose RPR Non-reactive Discharge Plan Discharge Attending physician on discharge: Charmaine Fritz Discharging Clinician: Kiara Britt Anticipated Discharge Date/Time: 06/04/22 23:31 Patient Disposition: Home, Self-Care Activity: may shower Diet: as tolerated and regular Discharge Instructions: Continue taking your vitamin and any other supplements as previously directed (Examples: Iron, Vitamin D). You may take Tylenol 1000mg over the counter every 6 hours as needed for pain. Do not exceed 4000mg of Tylenol daily. You may continue using tucks pads and dermoplast spray if needed for a few more days. Patient Instructions: Antibiotic Form Stand Alone Forms: General Discharge Information Follow-up/Referrals: Kiara Britt, CNM [Primary Care Provider] - (6 week visit) Discharge Medications: New docusate sodium [Colace] 100 mg capsule 100 mg PO BID 30 Days Qty: 60 0RF ibuprofen 600 mg tablet 600 mg PO Q6H PRN (Reason: pain) Qty: 45 0RF Continued sertraline 50 mg tablet 50 mg PO DAILY Discontinued Humulin N NPH U-100 Insulin 100 unit/mL suspension 42 unit SUBCUT DIRECTED ergocalciferol (vitamin D2) 1,250 mcg (50,000 unit) capsule 1,250 mcg PO WEEKLY Rx Instructions: twice weekly insulin lispro [Humalog U-100 Insulin] 100 unit/mL solution 5 unit subcut DIRECTED Date of admission:
[2022-06-05] VITALS (13 sets, daily range): BP systolic 83–153; BP diastolic 49–96; PULSE 75–145; RESP 14–19; TEMP 36.4–36.8; O2SAT 95–99
[2022-06-05] MEDS: IBUPROFEN 600 MG TABLET PO ×4 (00:41→22:39)
[2022-06-05] MEDS: BENZOCAINE 20% AER SPR (*SP) 56 GM CAN 1 SPRAY TOPICAL (00:42)
[2022-06-05] MEDS: WITCH HAZEL 40 PADS 1 PAD TOPICAL (00:42)
[2022-06-05 05:44] LABS: Hematocrit 31.8 % (37.0-47.0); Hemoglobin 10.7 g/dL (12.0-15.0)
[2022-06-05] MEDS: DOCUSATE SODIUM 100 MG CAPSULE PO (07:15)
[2022-06-05] MEDS: MULTIVIT/MIN/PREN/FOL AC/IRON TABLET 1 TAB PO (07:15)
--- NOTE | 2022-06-05 08:43 | WPDANLDPN2 ---
Anes-Prog Note L&D Date/Time: 06/05/22 08:43 Comfortable throughout: labor and delivery Neuraxial method: epidural Epidural/Spinal procedure site: tender Neuro status: Neuro function grossly intact. Cardiovascular status: normal Respiratory status: normal Airway patency: baseline Mental status: baseline Post-Op hydration status: normal Vital Signs: Last Vital Signs Temp 97.6 F 06/04/22 22:24 Pulse 89 06/05/22 01:09 Resp 16 06/04/22 22:24 BP 106/59 L 06/05/22 01:09 Pulse Ox 100 06/04/22 22:18 O2 Del Method Room Air 06/05/22 04:00 Pain score (VAS): 2 I/O: Intake & Output 06/04/22 06/05/22 06/05/22 23:59 07:59 15:59 Intake Total 2150 Output Total 150 500 Balance 2000 -500 Post-procedural complaints: none Patient feedback: Patient satisfied with anesthetic care.
--- NOTE | 2022-06-05 11:00 | PM.OBPNVD ---
OB - PN: Subj Subjective Date/time seen: 06/05/22 11:00 Patient comments: no complaints and pain well controlled baby status: doing well [place] feeding status: exclusively breast feeding OB - PN: Obj Data Labs 06/05/22 05:29 06/03/22 10:33 Labs: Laboratory Results - last 24 hr 06/03/22 06/04/22 06/04/22 10:33 14:31 18:35 Hgb Hct POC Capillary Glucose 70 60 L RPR Non-reactive 06/04/22 06/05/22 22:21 05:29 Hgb 10.7 L Hct 31.8 L POC Capillary Glucose 58 L* RPR OB - PN A/P Plan day: 1 Plan: discharge home Comments: Pt strongly desires discharge home. Time Spent With Patient Time: Total time spent is greater than 50% in coordination of care (as documented) at patient's floor/unit and/or counseling patient: Review of Systems Review of Systems: All systems reviewed & are unremarkable except as noted in HPI and below Exam Narrative: Alert and oriented. Mood is pleasant and cooperative. Urinating without difficulty. Denies passing any large clots. Perineum with minimal edema. Fundus firm and below umbilicus. Const: General: cooperative, healthy appearing, no acute distress and alert Orientation/consciousness: patient oriented x3 Limitations: no limitations Resp: Effort & Inspection: normal respiratory effort Auscultation: clear to auscultation bilaterally Cardio: Rate: regular rate GI: Inspection: normal to inspection Neuro: General: patient oriented x3 Extrem: General: normal to inspection Psych: Appearance: grossly normal Mental Status: mental status grossly normal Affect: normal affect Thought process: Normal thought process present
--- NOTE | 2022-06-05 11:30 | PC.NURSE ---
0715 Epidural catheter removed easily, blue tip visualized. Small bruise noted at site.
[2022-06-05] MEDS: MEASLES,MUMPS,RUBELLA VACCINE 0.5 ML VIAL SUB-Q (14:20)
--- NOTE | 2022-06-05 17:29 | PC.NURSE ---
[id number] Introductions were made, then consulted with patient to assess needs related to . Mother led the conversation with her?plans to feed?her infant and the?experience so far. Mother states infant is latching and well without no pain. Resources provided for inpatient and outpatient services with mom/baby guide. Mother voiced understanding of information and consents for a consult. Mother shares her story with her last (20 mo.) that she didn't have a good milk supply for. Encouraged understanding of the benefits of skin to skin (demonstrating unwrapping and placing upright on her chest), stimulating with massage touch, changing positions to encourage wakefulness, how to watch for early feeding cues, responsive feeding, feeding on demand (aiming for 8-12 times in 24 hours, about every 2-3 hours), milk production, building/maintaining a milk supply, duration of feeding, signs of adequate intake/output and how to record on the feeding sheet. Mother voiced understanding of skin to skin, stimulating with massage touch, responsive feedings, hand expressed colostrum, talking to infant to encourage if it has been 2 -2.5 hours since the start of the last , to call if infant does not latch, or if there is discomfort with . Resources provided for inpatient/outpatient with the mom/baby guide. Mother voiced understanding of information, demonstrated learning and will call if there is a request for assistance. Reported to the primary RN. [phone] Purposefully rounded as RN had reported mother was . When entering the room infant appeared to be latched using the side-lying positioning, however, infant was sucking but not with good rocking motion or swallowing. Assessment of the latch was shallow. Mother was open to hand expression and changing positioning to attempt another that is more effective. was not latching so mother hand expressed colostrum and it was cup fed to the infant after gel was given. Infant did not latch after multiple attempts. Reviewed caring for a late pre-term , stimulating for a good milk supply, intake/output is appropriate using the pie demonstration and mother is confident to breastfeed. was placed skin to skin and mother will attempt to breastfeed in a couple of hours. Mother voiced understanding of when to call for assistance, if there's pain with latching, no latching, difficulty waking infant to breastfeed or to have latch assessed for good suck/swallow ratios. Reported to the Primary RN.
[2022-06-06 04:25] VITALS: BP 134/82; PULSE 81; RESP 15; TEMP 36.7; O2SAT 99
[2022-06-06 07:13] VITALS: BP 134/79; PULSE 81; RESP 18; TEMP 36.6; O2SAT 98
--- NOTE | 2022-06-06 07:59 | P.PNOB_ITS ---
OB - PN: Subj Subjective Date/time seen: 06/06/22 07:59 Interval history: DC home yesterday cancelled d/t with blood sugar issues. Requesting to see admissions consultant today. Patient comments: no complaints and pain well controlled baby status: doing well [place] feeding status: exclusively breast feeding OB - PN: Obj Data Labs 06/05/22 05:29 06/03/22 10:33 OB - PN A/P Plan day: 2 Plan: discharge home Time Spent With Patient Time: Total time spent is greater than 50% in coordination of care (as documented) at patient's floor/unit and/or counseling patient: Review of Systems Review of Systems: All systems reviewed & are unremarkable except as noted in HPI and below Exam Narrative: Alert and oriented. Mood is pleasant and cooperative. Urinating without difficulty. Denies passing any large clots. Perineum with minimal edema. Fundus firm and below umbilicus. Const: General: cooperative, healthy appearing, no acute distress and alert Orientation/consciousness: patient oriented x3 Limitations: no limitations Resp: Effort & Inspection: normal respiratory effort Auscultation: clear to auscultation bilaterally Cardio: Rate: regular rate GI: Inspection: normal to inspection Neuro: General: patient oriented x3 Extrem: General: normal to inspection Psych: Appearance: grossly normal Mental Status: mental status grossly normal Affect: normal affect Thought process: Normal thought process present
[2022-06-06 09:30] VITALS: PULSE 81; RESP 18; O2SAT 98
--- NOTE | 2022-06-06 10:37 | PC.NURSE ---
Instruction given on increasing stimulation either by pumping or hand expression and feeding baby more frequently. Explained to mother that baby is a late baby and will require frequent feedings to maintain weight. Pt expresses understanding.
--- NOTE | 2022-06-06 16:16 | PC.NURSE ---
[id number] Consulted with patient to assess needs related to . Mother led conversation with her experience with feeding baby so far. is in the nursery at this time. Mother states she is able to latch without pain and is confident with plans to go home. 0900 - was brought into the room. Mother consents to having a latch assessed since mother states she has a unique way of latching that works. Mother uses a nonconventional side-lying position to breast feed her . She leans on her right elbow, uses her right hand to scissor hold her nipple with her fingers on the areola to shove more breast into the infants mouth. Infant opens mouth and mother brings infant to the breast and states has a latch. sucks 3 times, swallows, then detaches. At times mother latches infant and is unsure if the latch is good and due to positioning and the size of the large soft breast it is very difficult to assess the latch, however; does not maintain latch. There are 5 breast feedings recorded in the last 24 hours with two hand expressed breast milk sessions where the milk was fed to infant with a cup or spoon. Mother was instructed to increase breast stimulation with more effective or pumping to 8-12 times in 24 hours with 1-2 times at night. Infant meets the outcomes for weight, output and jaundice at this time. Mother states she is confident to continue effectively her at home, when to call for assistance and denies any additional assistance or education at this time. Reinforced understanding of milk production, transition of milk, signs of adequate intake, transition of stool, prevention/relief of engorgement, responsive watching for feeding cues, the different methods of stimulating to breastfeed 2-3 hours after the start of the last feeding, the care of a late infant, community resources, medication information reviewed per [employer] and when to call a provider using the resource of the mom and baby guide/[facility] website. Mother voiced understanding of the education shared. Reported to the primary RN.
[2022-06-07 11:21] VITALS: BP 137/79; PULSE 95; RESP 20; TEMP 36.7; O2SAT 99
== END 2022-06-06 11:15 | disposition home or self-care (01) | DRG 560 ==
LOC: ANHLDR 06-04 23:32 → ANHOB2 06-05 10:19 → ANHLDR 06-09 09:59 → ANHOB2 06-09 09:59
PROVIDERS: Admitting Provider Obstetrics & Gynecology Gynecology; PCP Advanced Practice Midwife; Visit Provider Advanced Practice Midwife
DX: O13.4 Gestational [pregnancy-induced] hypertension without significant proteinuria, complicating childbirth (principal); O24.429 Gestational diabetes mellitus in childbirth, unspecified control; F41.9 Anxiety disorder, unspecified; O40.3XX0 Polyhydramnios, third trimester, not applicable or unspecified; O70.1 Second degree perineal laceration during delivery; O32.6XX0 Maternal care for compound presentation, not applicable or unspecified; Z3A.37 37 weeks gestation of pregnancy; Z37.0 Single live birth; O99.344 Other mental disorders complicating childbirth
CPT/HCPCS: 36415; 80053; 82570; 82948; 84156; 84550; 85014; 85018; 85025; 86592; 86850; 86900; 86901; 88307; 90710; A9270; J1200; J1815; J2590; J2795; J7120

== ENCOUNTER 2022-07-21 00:48 | Day surgery (SDC) | payer OTHER, SELFPAY ==
[2022-07-10 09:23] VITALS: BMI 36.9
--- NOTE | 2022-07-10 09:29 | PC.NURSE ---
Report to the Outpatient Waiting Room, entrance under the green pavilion located off [facility], at time 0600 on date 07/21/22. Planned Procedure Time: 0730. Time changes happen often and if your time is changed the preop area will call you the afternoon before. - You and your visitor will be asked to self-screen and do not enter if you have any COVID symptoms. - Only one visitor is requested with a max of two and NO children visitors are allowed at this time. - The patient visitor may be requested to leave or wait in car when not with patient due to distancing restrictions. - A mask is optional within the hospital at this time. Patients may have clear liquids (water, carbonated beverages, clear teas, apple juice) until 3 hours prior to surgery with a maximum of 20 ounces. - No food from midnight until time of surgery Take the following medications with a SIP of water the morning of surgery: SERTRALINE DO NOT STOP ANY OF YOUR OTHER PRESCRIPTION MEDICATIONS PRIOR TO SURGERY?EXCEPT THE FOLLOWING Medications to discontinue per physician: VITAMINS Date to take last dose: 07/18/22 Please no make-up, nail uzbek, hairspray, perfume, deodorant, or body powder the day of surgery. No jewelry (including any body piercings) or valuables the day of surgery, leave them at home. Please take a shower or bath the night before, or the morning of, surgery with an antibacterial soap. Wear comfortable, loose fitting clothing. - Jewelry must be removed prior to entering the operating room. Rings and piercings that are not removed may be cut off. - The hospital will not accept responsibility for valuables. - Please leave all valuables, including medications, at home the day of surgery. If you are going home after surgery, a licensed full service vending driver must drive you home. - NO public transportation without another adult if you receive anesthesia. - We recommend that an adult stay with you for 24 hours following discharge. - We also recommend that you do not drive, make important decision, drink alcoholic beverages, or take any drugs that were not prescribed by your health care provider for at least 24 hours after your discharge time. Follow any additional instructions given to you from your surgeon. If you or anyone in your household have experienced Covid symptoms in the past week, please notify your surgeon or the nurse liaison at the phone number below for possible testing. Telephone instructions given to PT - CASSI SCHMITZ and asked if any additional questions and then verbalized understanding. Patient advised to call surgeon office or pre surgery nurse liaison [phone] if any additional questions.
[2022-07-21] VITALS (8 sets, daily range): BP systolic 94–144; BP diastolic 45–88; PULSE 61–88; RESP 14–20; TEMP 36–36.3; O2SAT 96–100
[2022-07-21] MEDS: ACETAMINOPHEN 500 MG TABLET 1000 MG PO (06:19)
[2022-07-21] MEDS: LACTATED RINGERS 1,000 ML 30 ML IV CONT (06:40)
[2022-07-21] MEDS: KETOROLAC 15 MG/ML VIAL (*BKC) IV PUSH (06:44)
--- NOTE | 2022-07-21 07:13 | WPDANESEPPF ---
Anes - Initial Pre Proc Eval Procedure: Operation Date: 07/21/22 07:30 Proposed Procedures p Bilateral Laparoscopic Salpingectomy - Charmaine Fritz MD Date/Time: 07/21/22 07:13 Surgeon: Charmaine Fritz MD Pre Op Diagnosis: desires sterilization Patient Data Age: 32 Gender: F Height: 1.75 m Weight: 113.4 kg Allergies Allergy/AdvReac Type Severity Reaction Status Date / Time Penicillins Allergy Mild Rash Verified 07/21/22 06:13 Home Medications Medication Instructions Recorded Confirmed Type sertraline 50 mg tablet 50 mg PO DAILY 04/26/22 07/21/22 History ergocalciferol (vitamin D2) 1,250 1,250 mcg PO 2XW 07/10/22 07/21/22 History mcg (50,000 unit) capsule (Vitamin D2) diazepam 10 mg tablet 10 mg HS 07/21/22 07/21/22 History ibuprofen 600 mg tablet 600 mg PO Q6-8H PRN Pain 07/21/22 07/21/22 History Patient hx anesthesia problems: none Family hx anesthesia problems: none Results Review: All pre-operative results and documents have been reviewed as part of the pre-operative evaluation. [facility] Family History Family History Father Diabetes mellitus Heart disease Father Hypertension Social History Social History Smoking status: Former smoker Tobacco type: e-cigarettes/vaping Second hand tobacco smoke exposure: No Smoking end date: 04/20/16 Alcohol intake: never Substance use: never Substance use type: does not use Lack of Transportation: No Lack of Food: Never True Current Housing: I Have Housing Concerned About Future Housing: No Difficulty Paying Gas/Electric Bills: No Difficulty Paying for Meds: No Currently Unemployed: No Education: High School Diploma/GED Difficulty w/ Childcare or Family Care: No Living arrangements: with family Spiritual care concerns: No Anes - Eval Final PreProcedure Day of Procedure 07/21/22 07:13 Patient weight: obese Heart: regular rate and rhythm Lungs: clear to auscultation Airway: Mallampati scale class III Neurological: alert and oriented Last oral intake: >/= 8 hours ASA classification: III Emergent: no Anesthetic plan: proceed Anesthesia type and monitoring: general ETT and standard monitoring Results Review: All pre-operative results and documents have been reviewed as part of the pre-operative evaluation. Informed Consent: The patient's anesthetic plan and its attendant risks and benefits were discussed with the patient/family/POA. Questions were solicited and answers provided to the satisfaction of the patient/family/POA.
--- NOTE | 2022-07-21 07:15 | WPDHPUPDATE1 ---
History and Physical Update Update Date/Time: 07/21/22 07:15 History and Physical has been reviewed, including an updated exam of the patient. There are NO changes in the patient's condition. Risks, benefits, and alternatives have been discussed and questions answered. Patient agrees to proceed with procedure.
--- NOTE | 2022-07-21 07:16 | P.HP_ITS ---
History of Present Illness History of Present Illness Consent: Risks, benefits, and alternatives have been discussed and questions answered. Patient agrees to proceed with procedure. Chief complaint: desires sterilization Narrative: Dotty Serrano is a 32 year old female 3 para 3 being admitted for laparoscopic bilateral salpingectomy secondary to request for sterilization. Patient is aware this was a permanent sterilizing procedure that cannot be reversed. Patient is aware of the risks of failure including ectopic . Risks of surgery including infection, bleeding, and injury to internal organs are reviewed. Patient voices understanding and agrees to proceed. Review of Systems Review of Systems: not repeated day of surgery; patient states no changes in status PMFSH Past Medical History Medical History (Updated 07/21/22 @ 07:18 by Charmaine Fritz MD) Anxiety Migraines (normal spontaneous vaginal delivery) X3 Family History Family History Father Diabetes mellitus Heart disease Father Hypertension Social History Social History Smoking status: Former smoker Tobacco type: e-cigarettes/vaping Second hand tobacco smoke exposure: No Smoking end date: 04/20/16 Alcohol intake: never Substance use: never Substance use type: does not use Lack of Transportation: No Lack of Food: Never True Current Housing: I Have Housing Concerned About Future Housing: No Difficulty Paying Gas/Electric Bills: No Difficulty Paying for Meds: No Currently Unemployed: No Education: High School Diploma/GED Difficulty w/ Childcare or Family Care: No Living arrangements: with family Spiritual care concerns: No Meds Home Medications and Allergies Home Medications Medication Instructions Recorded Confirmed Type sertraline 50 mg tablet 50 mg PO DAILY 04/26/22 07/21/22 History ergocalciferol (vitamin D2) 1,250 1,250 mcg PO 2XW 07/10/22 07/21/22 History mcg (50,000 unit) capsule (Vitamin D2) diazepam 10 mg tablet 10 mg HS 07/21/22 07/21/22 History ibuprofen 600 mg tablet 600 mg PO Q6-8H PRN Pain 07/21/22 07/21/22 History Allergies Allergy/AdvReac Type Severity Reaction Status Date / Time Penicillins Allergy Mild Rash Verified 07/21/22 06:13 Exam Const: General: healthy appearing and alert Orientation/consciousness: patient oriented x3 Resp: Effort & Inspection: normal respiratory effort GI: GI Palp: Yes Soft to palpation, No Tenderness to palpation present (GI) and No Palpable mass present : External Female Exam: normal external appearance Speculum Exam - V agina: normal appearance of the vagina and normal vaginal discharge Speculum Exam - Cervix: normal appearance of the cervix Bimanual exam- vagina & uterus: uterine size normal and consistency normal Bimanual Exam- Adnexa, other: normal adnexae and No adnexal tenderness Neuro: General: patient oriented x3 Assessment and Plan Assessment and plan (1) Encounter for sterilization: Code(s): Z30.2 - Encounter for sterilization Status: Acute Assessment and Plan: plan to proceed with laparoscopic bilateral salpingectomy
--- NOTE | 2022-07-21 07:56 | P.OP_ITS ---
Procedure Note - Detailed Date of Procedure 07/21/22 Pre-op Diagnosis desires sterilization Post-op Diagnosis Same Procedure Performed Laparoscopic bilateral salpingectomy Surgeon Charmaine Fritz MD Anesthesia General Findings normal-appearing uterus, tubes, and right ovary; left ovary with corpus luteum cyst Description of Procedure The patient is taken to the operating room and placed under anesthesia in the dorsal lithotomy position. She was prepped and draped under sterile conditions. Bladder was drained with a red rubber catheter. [place] speculum was placed in the vagina and the cervix grasped on the anterior lip with a tenaculum. The acorn manipulator was placed and speculum was removed. The attention was turned to the abdomen where a horizontal skin incision was made at the base of the umbilicus. The abdomen is tented and the Veress needle placed. Opening patient pressure was 5mmHg. Pneumoperitoneum was obtained to a patient pressure of 15. The Veress needle was then removed and the 5mm Optiview trocar placed while tenting the abdomen. Intra-abdominal placement was confirmed with the laparoscope. The patient was placed in Trendelenburg and the 2 5mm ports were placed 2cm above the symphysis pubis 1 to the left and 1 to the right. The blunt probe was used to bring the tubes into the surgical field. The right tube was grasped with an atraumatic grasper and the mesosalpinx is cauterized and cut with the LigaSure. Once the cornu was near, the tube was crossclamped and cauterized and cut with the LigaSure. The identical procedure was performed on the left side. All instruments are removed and the pneumoperitoneum was reduced. Skin incisions were closed using 4-0 nylon in interrupted fashion. Vaginal instruments are removed. The patient is awakened from anesthesia and taken to recovery in stable condition. The sponge, needle, and instrument counts are correct per the OR staff. Estimated Blood Loss 5 Drains No Packing No Pathology Yes ( Bilateral tubes) Complications No immediate complications Condition Stable Disposition PACU
[2022-07-21] MEDS: oxyCODONE HCL (*CRX) 5 MG TAB IR PO (09:19)
== END 2022-07-21 09:58 | disposition home or self-care (01) ==
PROVIDERS: PCP Advanced Practice Midwife; Visit Provider Obstetrics & Gynecology Gynecology
PROC: (CPT 49320; principal; 2022-07-21 07:30)
DX: Z30.2 Encounter for sterilization (principal); N83.12 Corpus luteum cyst of left ovary; F41.9 Anxiety disorder, unspecified; Z87.891 Personal history of nicotine dependence; E66.9 Obesity, unspecified; Z68.38 Body mass index [BMI] 38.0-38.9, adult
CPT/HCPCS: 58661; 88302; A9270; J0330; J1100; J1885; J2250; J2405; J2704; J3010; J7120